=== PATIENT | male | born 1985 | race Caucasian/White ===

== ENCOUNTER 2017-09-26 22:51 | Emergency (ER) | payer OTHER ==
[~2017-09-26 22:51] MED LIST: ASPIR-LOW81 MG PO; DICLOFENAC SODI75 MG PO; DIVALPROEX SOD500 MG PO; GABAPENTIN300 MG PO; LIPITOR80 MG PO; LO-DOSE ASPIRIN81 M1 PO; METFORMIN HCL500 MG PO; NAPROSYN500 MG PO; NORCO 5/3251 TABLET PO; OMEPRAZOLE20 MG PO; PAROXETINE HCL30 MG PO; PRAZOSIN HCL5 MG PO; VITAMIN D31000 UNIT PO; ZANTAC150 MG PO
[2017-09-26 23:14] LABS: BASOPHIL COUNT 0.1 K/uL (0-0.1); EOSINOPHIL (%) 1.5 % (0-5); EOSINOPHIL COUNT 0.1 K/uL (0-0.3); HEMATOCRIT 40.4 % (38.0-50.0); IMMATURE GRANULOCYTE (%) 0.1 % (0.0-0.7); INSTRUMENT ABS NEUTROPHIL CT 3.7 K/uL; LYMPHOCYTE COUNT 2.9 K/uL (1.0-2.8); MCH 28.1 PG (29.0-34.0); MCHC 33.2 G/DL (30.0-36.0); MCV 84.7 FL (86-99); MONOCYTE (%) 5.4 % (3-12); MONOCYTE COUNT 0.4 K/uL (0-0.8); NEUTROPHIL (%) 51.5 % (45-76); NEUTROPHIL COUNT 3.7 K/uL (1.8-6.4); PLATELET COUNT 266 K/uL (156-360); RBC DIS.WIDTH-CV 12.6 % (11.8-14.6); RBC DIS.WIDTH-SD 38.8 % (39-53); RED BLOOD COUNT 4.77 M/uL (4.00-5.50); WHITE BLOOD COUNT 7.2 K/uL (4.1-10.2)
[2017-09-26 23:34] LABS: AMYLASE 25 IU/L (1-118); CHLORIDE 106 mEq/L (99-109); SODIUM 139 mEq/L (136-147)
[2017-09-26 23:36] LABS: GLUCOSE 139 mg/dL (70-99)
[2017-09-26 23:37] LABS: ANION GAP 14 MEQ/L (2-14); TROP-I INTERPRETATION NEGATIVE; TROPONIN-I < 0.01 ng/mL (0.0-0.30)
[2017-09-26 23:39] LABS: SERUM ETHYL ALCOHOL < 10 mg/dL
[2017-09-26 23:40] LABS: GFR ESTIMATE (CALCULATED) > 59 mL/min/
[2017-09-26 23:41] LABS: UREA NITROGEN (BUN) 9 mg/dL (9-23)
[2017-09-26 23:43] LABS: LIPASE 23 U/L (1.0-51.0)
== END 2017-09-27 00:23 | disposition home or self-care (01) ==
LOC: TRA 22:51
PROVIDERS: Emergency Medicine
DX: S46.912A Strain of unspecified muscle, fascia and tendon at shoulder and upper arm level, left arm, initial encounter (principal); R07.9 Chest pain, unspecified; V03.90XA Pedestrian on foot injured in collision with car, pick-up truck or van, unspecified whether traffic or nontraffic accident, initial encounter
CPT/HCPCS: 71010; 73030; 73060; 80048; 81003; 82150; 83690; 84484; 85025; 86850; 86900; 86901; 93005; 99281; 99284; G0480

== ENCOUNTER 2017-10-02 01:00 | Emergency (ER) | payer OTHER ==
[~2017-10-02] VITALS: Ht 182.9 cm; Wt 130.7 kg
[2017-10-02] MEDS ORDERED: NAPROSYN500 MG PO (01:46)
[2017-10-02 02:08] VITALS: BP 142/83
== END 2017-10-02 02:08 | disposition home or self-care (01) ==
LOC: EME 01:00
PROC: 2W3MX1Z Immobilization of Left Lower Extremity using Splint (ICD-10-PCS; principal; 2017-10-02)
DX: S80.02XA Contusion of left knee, initial encounter (principal); S83.92XA Sprain of unspecified site of left knee, initial encounter; V09.9XXA Pedestrian injured in unspecified transport accident, initial encounter
CPT/HCPCS: 73564; 99281; 99283

== ENCOUNTER 2017-10-13 17:15 | Emergency (ER) | payer OTHER ==
[~2017-10-13] VITALS: Ht 185.4 cm; Wt 131.1 kg
[2017-10-13] MEDS ORDERED: MOTRIN600 MG PO (18:07)
[2017-10-13] MEDS ORDERED: TRAMADOL HCL50 MG PO (18:07)
[2017-10-13 18:13] VITALS: BP 114/78
== END 2017-10-13 18:14 | disposition home or self-care (01) ==
LOC: EME 17:15
DX: S46.002A Unspecified injury of muscle(s) and tendon(s) of the rotator cuff of left shoulder, initial encounter (principal); V03.90XA Pedestrian on foot injured in collision with car, pick-up truck or van, unspecified whether traffic or nontraffic accident, initial encounter; E11.9 Type 2 diabetes mellitus without complications; I10 Essential (primary) hypertension; E78.5 Hyperlipidemia, unspecified; F17.200 Nicotine dependence, unspecified, uncomplicated; K21.9 Gastro-esophageal reflux disease without esophagitis; F43.10 Post-traumatic stress disorder, unspecified
CPT/HCPCS: 73030; 99281; 99284